=== PATIENT | female | born 1965 | race African-American/Black ===

== ENCOUNTER 2017-01-06 23:50 | Emergency (ER) | payer MEDICAID, SELFPAY ==
[2017-01-07] MEDS ORDERED: Ketorolac Tromethamine 60 MG/2 ML VIAL ONE (00:26)
== END 2017-01-07 00:56 | disposition home or self-care (01) ==
LOC: ERS 23:50
DX: M54.6 Pain in thoracic spine (principal); G89.29 Other chronic pain; E11.9 Type 2 diabetes mellitus without complications; E78.5 Hyperlipidemia, unspecified; I10 Essential (primary) hypertension; I25.10 Atherosclerotic heart disease of native coronary artery without angina pectoris; F32.9 Major depressive disorder, single episode, unspecified; F17.210 Nicotine dependence, cigarettes, uncomplicated; Z79.4 Long term (current) use of insulin; Z79.82 Long term (current) use of aspirin; Z79.899 Other long term (current) drug therapy
CPT/HCPCS: 96372; 99406; J1885

== ENCOUNTER 2017-06-20 02:25 | Emergency (ER) | payer MEDICAID, SELFPAY ==
[2017-06-20 02:56] LABS: #Basophils 0.1 thou/uL (0.0-0.2); #Eosinphils 0.3 thou/uL (0.0-0.7); #Monocytes 0.6 thou/uL (0.11-0.59); #Neutrophils 5.4 thou/uL (1.40-6.50); %Eosinophils 3.2 % (0.0-10.0); %Lymphocytes 24.2 % (21.0-51.0); %Neutrophils 64.6 % (42.0-75.0); Hemoglobin 14.3 g/dL (12.0-16.0); Mean Corpuscular HGB CONC 34.3 g/dL (32.0-36.0); Mean Corpuscular Hemoglobin 30.5 pg (27.0-31.0); Mean Corpuscular Volume 88.9 fl (81.0-99.0); Platelet Count 249 thou/uL (130-400); RBC Distribution Width 12.9 % (11.5-14.5); Red Blood Cell (RBC) Count 4.68 mill/uL (4.20-5.40); White Blood Cell (WBC) Count 8.4 thou/uL (4.8-10.8)
[2017-06-20 03:12] LABS: ALT (SGPT) 23 U/L (8-55); AST (SGOT) 14 U/L (5-34); Albumin 3.9 g/dL (3.5-5.0); Alkaline Phosphatase 154 U/L (40-150); Anion Gap 13 mmol/L (10-20); BUN (Urea Nitrogen) 15 mg/dL (9.8-20.1); Bilirubin, Total 0.2 mg/dL (0.2-1.2); Calc. Creatinine Clearance 0 mL/min (70-130); Calcium 9.8 mg/dL (7.8-10.44); Carbon Dioxide 27 mmol/L (22-29); Chloride 96 mmol/L (98-107); Estimated GFR-MDRD 49; Globulin 4.1 g/dL (2.4-3.5); Glucose 516 mg/dL (70-105); Sodium 132 mmol/L (136-145)
[2017-06-20 03:15] LABS: CKMB 0.9 ng/mL (0-6.6); Troponin I Less than 0.010 ng/mL (< 0.028)
[2017-06-20 05:44] LABS: Troponin I Less than 0.010 ng/mL (< 0.028)
--- NOTE | 2017-06-20 07:31 | RAD ---
SINGLE VIEW OF THE CHEST: COMPARISON: 12/27/15. HISTORY: Anxiety and chest pain. FINDINGS: Single view of the chest shows a normal sized cardiomediastinal silhouette. There is no evidence of c onsolidation, mass, or pleural effusion. The bones are unremarkable. IMPRESSION: No evidence of acute cardiopulmonary disease. POS: [facility]
== END 2017-06-20 05:51 | disposition home or self-care (01) ==
LOC: ERS 02:25
DX: F41.9 Anxiety disorder, unspecified (principal); Z71.6 Tobacco abuse counseling; I25.10 Atherosclerotic heart disease of native coronary artery without angina pectoris; E11.9 Type 2 diabetes mellitus without complications; E78.5 Hyperlipidemia, unspecified; I10 Essential (primary) hypertension; F32.9 Major depressive disorder, single episode, unspecified; F17.210 Nicotine dependence, cigarettes, uncomplicated; Z79.899 Other long term (current) drug therapy; Z79.4 Long term (current) use of insulin
CPT/HCPCS: 36415; 71045; 80053; 82553; 84484; 85025; 93005; 99406

== ENCOUNTER 2017-08-02 20:10 | Emergency (ER) | payer SELFPAY ==
[2017-08-02 21:00] LABS: #Basophils 0.1 thou/uL (0.0-0.2); #Eosinphils 0.1 thou/uL (0.0-0.7); #Lymphocytes 2.4 thou/uL (1.20-3.40); #Monocytes 0.6 thou/uL (0.11-0.59); #Neutrophils 6.1 thou/uL (1.40-6.50); %Basophils 0.7 % (0.0-1.0); %Eosinophils 1.4 % (0.0-10.0); %Lymphocytes 25.4 % (21.0-51.0); %Monocytes 6.6 % (0.0-10.0); Hemoglobin 15.1 g/dL (12.0-16.0); Mean Corpuscular HGB CONC 34.8 g/dL (32.0-36.0); Mean Corpuscular Hemoglobin 30.4 pg (27.0-31.0); Mean Corpuscular Volume 87.2 fL (78.0-98.0); Mean Platelet Volume 8.7 fL (7.4-10.4); Platelet Count 246 thou/uL (130-400); RBC Distribution Width 12.6 % (11.5-14.5); Red Blood Cell (RBC) Count 4.96 mill/uL (4.20-5.40); White Blood Cell (WBC) Count 9.3 thou/uL (4.8-10.8)
[2017-08-02 21:23] LABS: ALT (SGPT) 19 U/L (8-55); AST (SGOT) 13 U/L (5-34); Albumin 4.1 g/dL (3.5-5.0); Alkaline Phosphatase 163 U/L (40-150); Anion Gap 15 mmol/L (10-20); BUN (Urea Nitrogen) 11 mg/dL (9.8-20.1); Bilirubin, Total 0.4 mg/dL (0.2-1.2); Calc. Creatinine Clearance 0 mL/min (70-130); Calcium 9.8 mg/dL (7.8-10.44); Carbon Dioxide 25 mmol/L (22-29); Chloride 96 mmol/L (98-107); Estimated GFR-MDRD 72; Globulin 4.4 g/dL (2.4-3.5); Glucose 283 mg/dL (70-105); Potassium 3.9 mmol/L (3.5-5.1); Protein, Total 8.5 g/dL (6.0-8.3); Sodium 132 mmol/L (136-145)
[2017-08-02 21:27] LABS: Troponin I Less than 0.010 ng/mL (< 0.028)
[2017-08-02 21:32] LABS: Acetaminophen Less than 6.0 mcg/mL (10.0-30.0); Alcohol Less than 10 mg/dL (Less than 10); Salicylate Less than 8.0 mg/dL (15.0-30.0)
[2017-08-02 21:35] LABS: Bilirubin Negative (Negative); Blood, Urine Negative (Negative); Clarity CLEAR (Clear); Glucose, Urine (Dipstick) >=1000 mg/dL (Negative); Leukocyte Negative (Negative); Nitrite Negative (Negative); Protein, Urine (Dipstick) Negative (Neg-Trace); Specific Gravity, Urine 1.029 (1.002-1.036); pH, Urine 6.5 (5.0-9.0)
[2017-08-02 21:38] LABS: Pregnancy Test - Urine (BHCG) Negative (Negative); Pregu Control Background? CLEAR/WHITE (CLR/WHITE); Pregu Control Bar Appear? YES (CONTROL BAR); Specific Gravity 1.029 (1.002-1.036)
[2017-08-02 21:44] LABS: Amphetamine Not Detected (NotDetected); Barbiturates Screen Not Detected (NotDetected); Benzodiazepine Screen Not Detected (NotDetected); Cocaine Metabolite Screen Not Detected (NotDetected); Medtox Control Line Valid? VALID (VALID); Medtox Reader # READER 1; Methadone Not Detected (NotDetected); Methamphetamine Not Detected (NotDetected); Opiate Screen Not Detected (NotDetected); Oxycodone Screen Not Detected (NotDetected); Phencyclidine (PCP) Not Detected (NotDetected); THC/Cannabinoid Screen Not Detected (NotDetected); Tricyclic Screen Detected (NotDetected)
[2017-08-02 22:22] LABS: CK (CPK) 143 U/L (29-168)
[2017-08-02 23:01] LABS: Troponin I Less than 0.010 ng/mL (< 0.028)
== END 2017-08-02 23:25 | disposition home or self-care (01) ==
LOC: ERS 20:10
DX: R07.9 Chest pain, unspecified (principal); F41.9 Anxiety disorder, unspecified; E78.5 Hyperlipidemia, unspecified; E11.9 Type 2 diabetes mellitus without complications; F31.9 Bipolar disorder, unspecified; F17.210 Nicotine dependence, cigarettes, uncomplicated; M16.10 Unilateral primary osteoarthritis, unspecified hip; M47.9 Spondylosis, unspecified; I10 Essential (primary) hypertension; I25.10 Atherosclerotic heart disease of native coronary artery without angina pectoris; Z79.899 Other long term (current) drug therapy; Z79.4 Long term (current) use of insulin; Z71.6 Tobacco abuse counseling
CPT/HCPCS: 36415; 80053; 80306; 80307; 81003; 81025; 82550; 82553; 84443; 84484; 85025; 93005; 99406

== ENCOUNTER 2018-03-23 23:52 | Emergency (ER) | payer MEDICAID, SELFPAY ==
--- NOTE | 2018-03-24 08:08 | RAD ---
THREE VIEWS OF THE RIGHT THUMB: HISTORY: Right thumb pain. FINDINGS: Three views of the right thumb show no evidence of acute fracture or dislocation. No soft tissue swe lling is seen. No degenerative changes are present. IMPRESSION: Unremarkable exam. POS: [facility]
== END 2018-03-24 01:30 | disposition home or self-care (01) ==
LOC: ERS 23:52
DX: L03.011 Cellulitis of right finger (principal); E11.9 Type 2 diabetes mellitus without complications; E78.5 Hyperlipidemia, unspecified; I25.10 Atherosclerotic heart disease of native coronary artery without angina pectoris; I10 Essential (primary) hypertension; F41.9 Anxiety disorder, unspecified; F31.9 Bipolar disorder, unspecified; F17.210 Nicotine dependence, cigarettes, uncomplicated; Z79.899 Other long term (current) drug therapy; Z79.4 Long term (current) use of insulin

== ENCOUNTER 2018-04-17 14:11 | Emergency (ER) | payer SELFPAY ==
--- NOTE | 2018-04-17 15:14 | RAD ---
CHEST TWO VIEWS: History: Cough. Comparison: 03-16-18 FINDINGS: Lungs are clear. No pneumothorax or effusion. Cardiac silhouette and mediastinal contour is within no rmal limits. IMPRESSION: No acute intrathoracic abnormality. POS: [facility]
== END 2018-04-17 16:00 | disposition home or self-care (01) ==
LOC: ERS 14:11
DX: J20.9 Acute bronchitis, unspecified (principal); I25.10 Atherosclerotic heart disease of native coronary artery without angina pectoris; E11.9 Type 2 diabetes mellitus without complications; E78.5 Hyperlipidemia, unspecified; I10 Essential (primary) hypertension; F41.9 Anxiety disorder, unspecified; F31.9 Bipolar disorder, unspecified; F17.210 Nicotine dependence, cigarettes, uncomplicated
CPT/HCPCS: 71046

== ENCOUNTER 2018-05-09 08:53 | Emergency (ER) | payer SELFPAY ==
[2018-05-09 09:33] LABS: #Basophils 0.1 thou/uL (0.0-0.2); #Eosinphils 0.2 thou/uL (0.0-0.7); #Lymphocytes 2.4 thou/uL (1.20-3.40); #Monocytes 0.7 thou/uL (0.11-0.59); #Neutrophils 4.8 thou/uL (1.40-6.50); %Basophils 0.6 % (0.0-1.0); %Eosinophils 2.9 % (0.0-10.0); %Lymphocytes 29.4 % (21.0-51.0); %Monocytes 8.5 % (0.0-10.0); %Neutrophils 58.5 % (42.0-75.0); Hemoglobin 13.8 g/dL (12.0-16.0); Mean Corpuscular HGB CONC 33.8 g/dL (32.0-36.0); Mean Corpuscular Hemoglobin 29.7 pg (27.0-31.0); Mean Platelet Volume 9.4 fL (7.4-10.4); Platelet Count 247 thou/uL (130-400); RBC Distribution Width 12.4 % (11.5-14.5); Red Blood Cell (RBC) Count 4.63 mill/uL (4.20-5.40); White Blood Cell (WBC) Count 8.3 thou/uL (4.8-10.8)
[2018-05-09] MEDS ORDERED: Aspirin Chewable 81 MG TAB ONE (09:41)
[2018-05-09] MEDS ORDERED: Nitroglycerin 2% Ointment 1 INCH/1 GM Packet ONE (09:41)
[2018-05-09 10:00] LABS: ALT (SGPT) 9 U/L (8-55); AST (SGOT) 7 U/L (5-34); Albumin 3.8 g/dL (3.5-5.0); Alkaline Phosphatase 133 U/L (40-150); Anion Gap 11 mmol/L (10-20); BUN (Urea Nitrogen) 9 mg/dL (9.8-20.1); Bilirubin, Total 0.3 mg/dL (0.2-1.2); Calc. Creatinine Clearance 0 mL/min (70-130); Calcium 9.5 mg/dL (7.8-10.44); Carbon Dioxide 27 mmol/L (22-29); Chloride 101 mmol/L (98-107); Estimated GFR-MDRD Greater than 90; Globulin 3.6 g/dL (2.4-3.5); Glucose 184 mg/dL (70-105); Potassium 3.4 mmol/L (3.5-5.1); Protein, Total 7.4 g/dL (6.0-8.3); Sodium 136 mmol/L (136-145)
--- NOTE | 2018-05-09 10:16 | RAD ---
PORTABLE CHEST: HISTORY: Chest pain. COMPARISON: Two view chest from 04/17/2018. FINDINGS: The lung rivers appear clear and well aerated. No focal infiltrate identified. Vascular markings ar e normal. The heart and mediastinum are unremarkable. IMPRESSION: No acute process identified. POS: [facility]
== END 2018-05-09 10:23 | disposition home or self-care (01) ==
LOC: ERS 08:53
DX: R07.89 Other chest pain (principal); E11.9 Type 2 diabetes mellitus without complications; I10 Essential (primary) hypertension; E78.5 Hyperlipidemia, unspecified; F17.210 Nicotine dependence, cigarettes, uncomplicated; Z79.4 Long term (current) use of insulin; Z79.899 Other long term (current) drug therapy
CPT/HCPCS: 36415; 71045; 80053; 84484; 85025; 93005

== ENCOUNTER 2018-10-29 08:36 | Outpatient (CLI) | payer MEDICARE ==
[~2018-10-29 08:36] MED LIST: EPINEPHrine 1 MG/ML AMP ONE; Gadobenate Dimeglumine 529 MG/1 ML (20ML VIAL) ONE; Iopamidol 300 61% 100 ML VIAL FS ONE; Lidocaine 1% PF 10 ML AMP ONE
--- NOTE | 2018-10-29 11:28 | RAD ---
RIGHT HIP ARTHROGRAM: HISTORY: Right hip pain. PROCEDURE IN DETAIL: After informed consent was obtained the patient was prepped and draped in the normal sterile fashion. Local anesthesia was obtained with 1% Xylocaine. A 22 gauge spinal needle was inserted into the la teral third of the joint space without difficulty and a total of approximately 8 to 9 mL of a mixture of dilute MultiHance and Isovue was injected with good opacification of the joint space. The patien t tolerated the procedure well. There were no immediate complications. IMPRESSION: Successful right hip arthrogram. Please see MRI report concerning findings. POS: [facility]
--- NOTE | 2018-10-29 14:05 | MRI ---
POST ARTHROGRAM MRI OF RIGHT HIP PERFORMED WITH CONTRAST ENHANCEMENT: Date: 10/29/18 HISTORY: Right hip pain. FINDINGS: A total of approximately 8 mL of a mixture of dilute MultiHance and nonionic contrast (Isovue) were u sed for this examination. The SI joints are symmetric in appearance. There are no signs of any stress fractures of the pelvic r ing noted. The visualized intrapelvic contents appear unremarkable. There is some mild tendinosis of the hamstring tendon origins. Small field of view images of the left hip were not performed. These appears to be some subchondral c ystic change of the acetabulum. There is good contrast opacification of the right hip joint. There is an irregular appearance and tea r of the anterior labrum, a fairly extensive tear. It extends into the anterior superior labrum. No l abral cyst formation is seen. No signs of muscle strain. IMPRESSION: Anterior right hip labral tear. POS: [facility]
== END 2018-10-29 08:37 | disposition home or self-care (01) ==
LOC: RAD 08:36
PROVIDERS: ATTEND Orthopaedic Surgery
DX: S73.101A Unspecified sprain of right hip, initial encounter (principal); M25.551 Pain in right hip
CPT/HCPCS: 27093; A9577; J0171; J2001; Q9967

== ENCOUNTER 2018-12-28 09:47 | Outpatient (CLI) | payer MEDICARE ==
--- NOTE | 2018-12-28 11:18 | MRI ---
MRI LUMBAR SPINE NONCONTRAST: HISTORY: Lumbar pain. Radiculopathy down the right leg. COMPARISON: 01/04/2016. FINDINGS: Appropriate T1 marrow signal intensity of the lumbar vertebrae. Lumbar spine vertebral body height is maintained. No fracture. No significant STIR hyperintensity to suggest vertebral body edema or ligamentous injury. Stable straightening of lumbar lordosis. Appropriate signal intensity of the paraspinal muscles. Appropriate signal intensity of the visualize d solid organs. Conus medullaris terminates at the inferior endplate of L1. T12-L1:Adequate disc hydration. No significant central canal stenosis. Neural foramina are patent garrick aterally. L1-L2:Adequate disc hydration. No posterior disc abnormality. No significant central canal stenosis o r significant neural foraminal narrowing. L2-L3:Adequate disc hydration. No significant posterior disc abnormality. No significant central maico l stenosis or significant neural foraminal narrowing. L3-L4:Adequate disc hydration. No significant posterior disc abnormality. Mild ligament flavum thicke nimisha and right greater than left facet hypertrophy. No significant central canal stenosis. Mild bilateral neural foraminal narrowing. L4-L5:Adequate disc hydration. No significant posterior disc abnormality. No significant central maico l stenosis. Mild bilateral neural foraminal narrowing. L5-S1:Mild loss of disc space height. Central/left subarticular disc protrusion. No significant centr al canal stenosis. Mild to moderate bilateral neural foraminal narrowing. IMPRESSION: Degenerative changes of the lumbar spine as above. Transcribed Date/Time: 12/28/2018 11:25 AM
--- NOTE | 2018-12-28 11:21 | MRI ---
MRI CERVICAL SPINE WITHOUT CONTRAST: HISTORY: Neck pain. Symptoms radiate down the right arm.. COMPARISON: None. FINDINGS: Straightening of normal cervical lordosis. Appropriate T1 marrow signal intensity. Vertebral body hei ght is maintained. No fracture. No significant STIR hyperintensity to suggest vertebral body edema or ligamentous injury. Visualized brain parenchyma, cervicomedullary junction, cervical cord and the upper thoracic cord hav e a normal size and signal intensity. C2-C3: No significant central canal stenosis. Neural foramina are patent. C3-C4: No significant posterior disc abnormality. No significant central canal stenosis or significan t neural foraminal narrowing. C4-C5: Broad-based disc-osteophyte complex abuts the thecal sac. Mild central canal stenosis. Mild to moderate bilateral foraminal narrowing due to uncovertebral hypertrophy. C5-C6: Broad-based disc-osteophyte complex with a right paracentral component. Mild to moderate centr al canal stenosis. No cord signal abnormality. Moderate to severe right foraminal narrowing due to uncovertebral hypertrophy. C6-C7: Broad-based disc-osteophyte complex. Minimal central canal stenosis. Mild bilateral foraminal narrowing due to uncovertebral hypertrophy. C7-T1: No significant central canal stenosis. Right neural foramen is patent. Mild left foraminal get rowing due to uncovertebral hypertrophy. IMPRESSION: No significant central canal stenosis or significant neural foraminal narrowing. Transcribed Date/Time: 12/28/2018 11:29 AM
== END 2018-12-28 09:48 | disposition home or self-care (01) ==
LOC: TBSIIMAG 09:47
PROVIDERS: ATTEND Neurological Surgery
DX: M47.26 Other spondylosis with radiculopathy, lumbar region (principal); M54.2 Cervicalgia
CPT/HCPCS: 72141; 72148

== ENCOUNTER 2019-02-11 06:02 | Outpatient (CLI) | payer MEDICARE ==
[2019-02-11 17:03] LABS: Hemoglobin 13.4 g/dL (12.0-16.0); Mean Corpuscular HGB CONC 32.8 g/dL (32.0-36.0); Mean Corpuscular Hemoglobin 30.4 pg (27.0-31.0); Mean Corpuscular Volume 92.8 fL (78.0-98.0); Platelet Count 297 thou/uL (130-400); RBC Distribution Width 13.1 % (11.5-14.5); White Blood Cell (WBC) Count 13.7 thou/uL (4.8-10.8)
[2019-02-11 17:35] LABS: Anion Gap 16 mmol/L (10-20); BUN (Urea Nitrogen) 21 mg/dL (9.8-20.1); Calc. Creatinine Clearance 0 mL/min (70-130); Calcium 9.6 mg/dL (7.8-10.44); Carbon Dioxide 27 mmol/L (22-29); Chloride 100 mmol/L (98-107); Estimated GFR-MDRD 53; Glucose 100 mg/dL (70-105); Sodium 139 mmol/L (136-145)
== END 2019-02-11 06:03 | disposition home or self-care (01) ==
LOC: LABBT 06:02
PROVIDERS: ATTEND Neurological Surgery
DX: Z01.818 Encounter for other preprocedural examination (principal); M54.12 Radiculopathy, cervical region
CPT/HCPCS: 80048; 85027; 93005; 93010

== ENCOUNTER 2019-02-14 23:49 | Emergency (ER) | payer MEDICARE ==
[2019-02-15 00:12] LABS: #Basophils 0.1 thou/uL (0.0-0.2); #Eosinphils 0.2 thou/uL (0.0-0.7); #Lymphocytes 2.8 thou/uL (1.20-3.40); #Monocytes 0.8 thou/uL (0.11-0.59); #Neutrophils 4.7 thou/uL (1.40-6.50); %Basophils 0.6 % (0.0-1.0); %Eosinophils 2.2 % (0.0-10.0); %Lymphocytes 32.7 % (21.0-51.0); %Monocytes 8.9 % (0.0-10.0); %Neutrophils 55.5 % (42.0-75.0); Hemoglobin 14.4 g/dL (12.0-16.0); Mean Corpuscular Volume 87.8 fL (78.0-98.0); Mean Platelet Volume 10.5 fL (7.4-10.4); Platelet Count 214 thou/uL (130-400); RBC Distribution Width 11.9 % (11.5-14.5); Red Blood Cell (RBC) Count 4.98 mill/uL (4.20-5.40); White Blood Cell (WBC) Count 8.5 thou/uL (4.8-10.8)
[2019-02-15 00:34] LABS: ALT (SGPT) 16 U/L (8-55); AST (SGOT) 11 U/L (5-34); Albumin 3.8 g/dL (3.5-5.0); Alkaline Phosphatase 149 U/L (40-110); Anion Gap 14 mmol/L (10-20); BUN (Urea Nitrogen) 11 mg/dL (9.8-20.1); Bilirubin, Total 0.2 mg/dL (0.2-1.2); Calc. Creatinine Clearance 0 mL/min (70-130); Calcium 9.1 mg/dL (7.8-10.44); Carbon Dioxide 26 mmol/L (22-29); Chloride 96 mmol/L (98-107); Estimated GFR-MDRD 72; Globulin 3.7 g/dL (2.4-3.5); Glucose 420 mg/dL (70-105); Potassium 3.7 mmol/L (3.5-5.1); Protein, Total 7.5 g/dL (6.0-8.3); Sodium 132 mmol/L (136-145)
[2019-02-15 01:36] LABS: Bacteria/HPF None Seen HPF (None Seen); Bilirubin Negative (Negative); Blood, Urine 3+ (Negative); Clarity Turbid (Clear); Glucose, Urine (Dipstick) Greater than 1000 mg/dL (Negative); Leukocyte 250 Leu/uL (Negative); Nitrite Negative (Negative); Protein, Urine (Dipstick) 50 mg/dL (Neg-Trace); RBC/HPF Greater than 50 HPF (0-3); Squamous Epithelial 0-3 HPF (0-3); Urobilinogen Normal mg/dL (Less than 2); WBC/HPF Greater than 50 HPF (0-3)
--- NOTE | 2019-02-15 08:27 | CT ---
PRELIMINARY REPORT/[facility]/EMERGENCY AFTER HOURS PROCEDURE EXAM:CT Abdomen and Pelvis Without Intravenous Contrast CLINICAL HISTORY: BLOOD IN URINE FOR 1 HR, "PRESSURE WHEN SHE URINATES" C/O BURNING WITH URINATION. TECHNIQUE: Axial computed tomography images of the abdomen and pelvis without intravenous contrast. CONTRAST: None. COMPARISON: None provided. FINDINGS: LUNG BASES: No basilar airspace consolidation or pleural effusion. LIVER: The liver is enlarged measuring 18.3 cm in length and is hypodense. GALLBLADDER AND BILE DUCTS : Unremarkable. No calcified stone. No ductal dilation. PANCREAS: Unremarkable. SPLEEN: Unremarkable. ADRENAL GLANDS: Unremarkable. KIDNEYS, URETERS, AND BLADDER: Unremarkable. No hydronephrosis or nephrolithiasis. No ureteral or alba dder calculi. Diffuse bladder wall thickening. STOMACH AND BOWEL: No obstruction. No wall thickening. No CT evidence of colitis or acute diverticuli tis. APPENDIX: No CT evidence for appendicitis. PERITONEUM: No free fluid. No free air. LYMPH NODES: No lymphadenopathy. REPRODUCTIVE: Lobular uterus with several fibroids measuring up to 4 cm. VASCULATURE: No aortic aneurysm. ABDOMINAL WALL AND SOFT TISSUES: Unremarkable. BONES: No fracture or suspicious osseous abnormality. IMPRESSION: Diffuse bladder wall thickening which may be secondary to under distention or cystitis. Correlation with urinalysis is recommended. No identified urinary tract calculus. No hydronephrosis. Several ut erine fibroids. Hepatomegaly with fatty infiltration. ELECTRONICALLY SIGNED BY: Waylon Montes MD Feb 15, 2019 1:50:21 AM [facility] FINAL REPORT EMERGENT AFTER HOURS CT OF THE ABDOMEN AND PELVIS WITHOUT CONTRAST: FINDINGS/IMPRESSION: I agree with the findings and impression given in the preliminary report per [facility] physici an. 1. There is slight wall thickening of the urinary bladder. This may be secondary to its partially d ecompressed state. 2. Uterine fibroids. 3. Fatty liver.
== END 2019-02-15 02:14 | disposition home or self-care (01) ==
LOC: ERS 23:49
DX: K81.9 Cholecystitis, unspecified (principal); R31.9 Hematuria, unspecified; I25.10 Atherosclerotic heart disease of native coronary artery without angina pectoris; E78.5 Hyperlipidemia, unspecified; E78.00 Pure hypercholesterolemia, unspecified; I10 Essential (primary) hypertension; F41.9 Anxiety disorder, unspecified; F31.9 Bipolar disorder, unspecified; F17.210 Nicotine dependence, cigarettes, uncomplicated; Z79.4 Long term (current) use of insulin; Z79.899 Other long term (current) drug therapy
CPT/HCPCS: 36415; 74176; 80053; 81015; 85025

== ENCOUNTER 2019-02-18 07:20 | Day surgery (SDC) | payer MEDICARE ==
[2019-02-11 16:12] VITALS: BMI 33.5
[2019-02-18] MEDS ORDERED: Sodium Chloride 0.9% 0 ML ONE (09:06)
[2019-02-18] MEDS ORDERED: Lidocaine 2% Jelly 5 ML TUBE ONE (09:58)
[2019-02-18] MEDS ORDERED: Fentanyl 100 MCG/2 ML VIAL ONE ×2 (09:58→14:10)
[2019-02-18] MEDS ORDERED: Insulin Regular 300 UNITS/3 ML VIAL ONE (10:16)
[2019-02-18] MEDS ORDERED: ePHEDrine/0.9% NaCl/PF SYRINGE 50 mg/10 ml ONE (10:24)
[2019-02-18] MEDS ORDERED: Ketorolac Tromethamine 30 MG/ML VIAL ONE (10:24)
[2019-02-18] MEDS ORDERED: Rocuronium Bromide 10 MG/ML (10ML VIAL) ONE (10:24)
[2019-02-18] MEDS ORDERED: PROPOFOL 200 MG/20 ML VIAL ONE (10:24)
[2019-02-18] MEDS ORDERED: PHENYLEPHRINE-NS 100 MCG/ML 10 ML SYRINGE ONE (10:24)
[2019-02-18] MEDS ORDERED: Ondansetron PF 4 MG/2 ML Vial ONE (10:24)
[2019-02-18] MEDS ORDERED: Lidocaine 1% PF 5 ML VIAL ONE (10:24)
[2019-02-18] MEDS ORDERED: Glycopyrrolate 0.2 MG/ML 5 ML SYRINGE ONE (10:24)
[2019-02-18] MEDS ORDERED: Sodium Chloride 0.9% 10 ML ONE (11:53)
--- NOTE | 2019-02-18 13:37 | OP ---
DATE OF PROCEDURE: 02/18/2019 DOUGH SCALER AND MIXER: Meredith Marie PA-C PROCEDURES PERFORMED: Anterior cervical diskectomy C4-C5 and C5-C6, interbody arthrodesis, intervertebral biomechanical device, local morselized autograft, demineralized bone matrix, anterior titanium instrumentation C4 through C6. DESCRIPTION OF PROCEDURE: The patient was brought to the operating room and intubated. She was positioned supine with the head in modest extension on gel-filled donut. An incision was made in the right precervical area and dissected medial to the sternocleidomastoid muscle. We identified the anterior cervical spinal, and the level was confirmed by x-ray. We debrided the anterior osteophytes, placed distraction across the disk spaces, and completely decompressed the intervertebral disks. The bony endplates were decorticated for purpose of arthrodesis and appropriate-sized intervertebral biomechanical PEEK device was brought in the field. It was filled with demineralized bone matrix, local morselized autograft, and tapped in place securely at C4-C5 and C5-C6. Next, an anterior plate was brought into the field and secured to C4, C5, and C6 using two 14-mm screws at each level. The wound was then extensively irrigated and MAC hemostasis was secured and the wound was closed in anatomic layers. Job ID: [id number]
[2019-02-18] MEDS ORDERED: HYDROcodone/Acetaminophen 5/325 mg Tablet ONE (14:04)
[2019-02-18] MEDS ORDERED: Promethazine HCl 25 MG/ML VIAL ONE (14:16)
[2019-02-18] MEDS ORDERED: Morphine 4 MG/ML VIAL ONE (14:18)
== END 2019-02-18 17:05 | disposition home or self-care (01) ==
LOC: SDC 07:20
PROVIDERS: ATTEND Neurological Surgery
PROC: 0RG20A0 Fusion of 2 or more Cervical Vertebral Joints with Interbody Fusion Device, Anterior Approach, Anterior Column, Open Approach (ICD-10-PCS; principal; 2019-02-18)
PROC: 0RT30ZZ Resection of Cervical Vertebral Disc, Open Approach (ICD-10-PCS; 2019-02-18)
DX: M47.22 Other spondylosis with radiculopathy, cervical region (principal); E11.9 Type 2 diabetes mellitus without complications; I10 Essential (primary) hypertension; E78.5 Hyperlipidemia, unspecified; Z79.4 Long term (current) use of insulin; Z79.899 Other long term (current) drug therapy
CPT/HCPCS: 36416; 76000; C1713; C1776; J0690; J1815; J1885; J2001; J2270; J2405; J2550; J2704; J3010; J3490

== ENCOUNTER 2019-02-20 12:29 | Inpatient (IN) | payer MEDICARE ==
[2019-02-20] MEDS ORDERED: Ketorolac Tromethamine 30 MG/ML VIAL ONE (14:41)
[2019-02-20] MEDS ORDERED: Dexamethasone 10 MG/ML VIAL ONE (14:41)
[2019-02-20] MEDS ORDERED: Benzocaine 20% Spray 60 ML CAN ONE (14:41)
[2019-02-20 14:46] LABS: #Eosinphils 0.2 thou/uL (0.0-0.7); #Lymphocytes 1.5 thou/uL (1.20-3.40); #Neutrophils 7.3 thou/uL (1.40-6.50); %Basophils 0.3 % (0.0-1.0); %Eosinophils 2.2 % (0.0-10.0); %Lymphocytes 14.8 % (21.0-51.0); %Monocytes 9.6 % (0.0-10.0); %Neutrophils 73.1 % (42.0-75.0); Hemoglobin 14.3 g/dL (12.0-16.0); Mean Corpuscular HGB CONC 32.6 g/dL (32.0-36.0); Mean Corpuscular Hemoglobin 29.1 pg (27.0-31.0); Mean Corpuscular Volume 89.5 fL (78.0-98.0); Mean Platelet Volume 10.1 fL (7.4-10.4); Platelet Count 215 thou/uL (130-400); White Blood Cell (WBC) Count 9.9 thou/uL (4.8-10.8)
[2019-02-20] MEDS ORDERED: Aluminum & Magnesium Hydroxide 60 ML, diphenhydrAMINE 150 MG, Lidocaine 2% Viscous Solu... SSW PRN (15:01)
[2019-02-20 15:07] LABS: Anion Gap 12 mmol/L (10-20); BUN (Urea Nitrogen) 6 mg/dL (9.8-20.1); Calc. Creatinine Clearance 0 mL/min (70-130); Calcium 9.9 mg/dL (7.8-10.44); Carbon Dioxide 32 mmol/L (22-29); Chloride 96 mmol/L (98-107); Estimated GFR-MDRD Greater than 90; Glucose 203 mg/dL (70-105); Sodium 136 mmol/L (136-145)
--- NOTE | 2019-02-20 15:19 | RAD ---
Neck soft tissue tissues 2 views HISTORY: Neck pain. Difficulty swallowing. Recent surgery. FINDINGS: Anterior operative fixation hardware at the C4-5-6 levels. No perihardware lucency. Metalli c markers associated with interbody fusion material within the confines of the disc spaces at the postoperative levels. No other unexpected metallic foreign bodies. Prevertebral soft tissue and gas density at the C2-6 levels up to 2.1 cm. Small pockets of internal g as. IMPRESSION: Significant residual soft tissue and gas density within the postoperative bed anterior to the C4-5-6 anterior fixation hardware.
[2019-02-20] MEDS ORDERED: HumaLOG 300 UNITS/3 ML VIAL SC PRN (16:30)
[2019-02-20] MEDS ORDERED: Dextrose 5% in Water 1,000 ML IV PRN (16:30)
[2019-02-20] MEDS ORDERED: Dextrose 50% Abboject 50 ML SYRINGE SLOW IVP PRN (16:30)
[2019-02-20] MEDS ORDERED: Promethazine HCl 12.5 MG SUPP PR PRN (16:32)
[2019-02-20] MEDS ORDERED: Morphine 2 MG/ML SYRINGE SLOW IVP PRN (16:32)
[2019-02-20] MEDS ORDERED: HYDROcodone/Acetaminophen 7.5/325 mg Tablet PO PRN ×2 (16:32)
[2019-02-20] MEDS ORDERED: Ondansetron PF 4 MG/2 ML Vial IVP PRN (16:32)
[2019-02-20] MEDS ORDERED: tiZANidine HCl 4 MG TAB PO PRN (16:32)
[2019-02-20 16:56] VITALS: BMI 33.5
[2019-02-20] MEDS: Dexamethasone 4 mg/ml Vial SLOW IVP SCH (17:55)
[2019-02-20] MEDS: Sodium Chloride 0.9% 1,000 ML IV SCH (17:56)
[2019-02-20] MEDS: HumaLOG 300 UNITS/3 ML VIAL SC PRN (18:03)
[2019-02-20] MEDS ORDERED: Fluconazole In NaCl,Iso-Osm 200 MG in Premix Bag 1 BAG IVPB SCH (18:15)
--- NOTE | 2019-02-20 20:31 | HP ---
HISTORY OF PRESENT ILLNESS: The patient is a 53-year-old female, known to us for C4 through C6 ACDF, postop day #2, who presents to the ER for complaints of dysphagia. She reports since the surgery, she has had difficulty tolerating any p.o. Per the ER, she was unable to tolerate even her oral secretions. She also was complaining of some pain across the posterior neck and shoulders. Denies any difficulty breathing, radicular pain, weakness, numbness, or tingling. A soft tissue C-spine x-ray was notable for postsurgical changes at C4 through C6, but no worrisome findings. She has normal white blood cell count and her labs are only remarkable for an elevated glucose 203. She is afebrile. PAST MEDICAL HISTORY: Coronary artery disease, type 2 diabetes, hypertension, hyperlipidemia, chronic neck and back pain. PAST SURGICAL HISTORY: C4 through C6 ACDF on 02/18/2019, history of angioplasty, carpal tunnel surgery on the left. SOCIAL HISTORY: The patient does not drink alcohol or use any drugs. She does smoke approximately one pack of cigarettes per day. REVIEW OF SYSTEMS: Per HPI. PHYSICAL EXAMINATION: VITAL SIGNS: Stable. Her temperature is 98.0, pulse is 79, respiratory rate 20, the patient is 100% on room air, blood pressure is 118/77. HEENT: Head, normocephalic and atraumatic. Eyes, PERRLA. Extraocular movements intact. ENT, oral mucosa are slightly dry. There is a white phlegm noted on the tongue. NECK: She has an incision along the anterior aspect of the right-sided neck that is clean, dry, and intact. Steri-Strips are placed. CARDIAC: Regular rate and rhythm. PULMONARY: Symmetric chest expansion. No evidence of dyspnea. MUSCULOSKELETAL: Free active range of motion of all extremities. No focal motor weakness. No reflex asymmetry. NEUROLOGIC: No focal neurologic deficits are appreciated. ASSESSMENT AND PLAN: This is a 53-year-old female, who is postoperative day #2, status post C4 through C6 anterior cervical discectomy and fusion, who has developed postoperative dysphagia. She has improved since the treatment began with Decadron in the emergency department. She is now tolerating her oral secretions and small sips of water or clear fluids. We will continue her steroids and monitor her progress. I will advance her diet as tolerated. The hospitalist has also started the patient on Diflucan for possible oral thrush. They will assist with medical management of her chronic medical problems. I have discussed this plan with Dr. Lopez who is in agreement. Job ID: [id number]
[2019-02-20] MEDS: Nystatin 500,000 UNITS/5 ML UDCUP SSW SCH (20:45)
[2019-02-20] MEDS: Insulin Glargine 60 UNITS in Pre-Filled Syringe 1 EACH SC SCH (20:45)
[2019-02-20] MEDS: Gabapentin 300 MG CAP PO SCH (20:45)
[2019-02-20] MEDS ORDERED: Non-Formulary Item 1 EACH (Insulin Detemir [Levemir Flextouch] 60 UNIT) SQ SCH (21:00)
[2019-02-20] MEDS ORDERED: Atorvastatin Calcium 40 MG TAB PO SCH (21:00)
[2019-02-21] MEDS: Dexamethasone 4 mg/ml Vial SLOW IVP SCH ×2 (00:12→05:28)
[2019-02-21] MEDS: Sodium Chloride 0.9% 1,000 ML IV SCH (03:11)
[2019-02-21] MEDS: HumaLOG 300 UNITS/3 ML VIAL SC PRN (05:28)
[2019-02-21 05:39] LABS: Hemoglobin A1c Greater than 14.0 % (4.0-6.0)
[2019-02-21 07:54] VITALS: BP 114/75; TEMP 98.1
[2019-02-21] MEDS ORDERED: metFORMIN 500 MG TAB PO SCH (08:00)
--- NOTE | 2019-02-21 08:47 | PDOC.HOSPP ---
- Subjective Encounter Date: 02/20/19 Encounter Time: 16:00 Subjective: pt up in bed complains of not being able to eat for the past few days. she denies any nausea but has been having pain on swallowing. No fever or chills no diarrhea or abdomen pain. - Objective Vital Signs & Weight: Vital Signs (12 hours) Temp Pulse Resp BP Pulse Ox 02/21/19 07:50 98.1 F 69 18 114/75 100 02/21/19 03:33 97.8 F 77 16 118/72 100 02/20/19 23:31 98.2 F 88 16 125/79 96 Weight Weight 195 lb I&O: 02/20/19 02/21/19 02/22/19 06:59 06:59 06:59 Intake Total 925 Output Total 0 Balance 925 Result Diagrams: 02/20/19 14:37 02/20/19 14:37 Additional Labs: Accuchecks 02/21/19 02/20/19 02/20/19 05:29 20:21 17:08 POC Glucose 447 H 283 H 212 H Hospitalist ROS - Review of Systems Respiratory: denies: cough, dry, shortness of breath, hemoptysis, SOB with excertion, pleuritic pain, sputum, wheezing, other Cardiovascular: denies: chest pain, palpitations, orthopnea, paroxysmal noc. dyspnea, edema, light headedness, other Gastrointestinal: reports: other Genitourinary: denies: dysuria, frequency, incontinence, hematuria, retention, other - Medication Medications: Active Medications Generic Name Dose Route Start Last Admin Trade Name Freq PRN Reason Stop Dose Admin Hydrocodone Bitart/Acetaminophen 1 tab 02/20/19 16:32 02/21/19 00:19 Funk 7.5/325 PO 1 tab Q4H PRN Administration Mild Pain (1-3) Atorvastatin Calcium 40 mg 02/20/19 21:00 02/20/19 20:45 Lipitor PO 40 mg HS ELMO Administration Dexamethasone 4 mg 02/20/19 18:00 02/21/19 05:28 Decadron SLOW IVP 4 mg Q6HR ELMO Administration Gabapentin 600 mg 02/20/19 21:00 02/20/19 20:45 Neurontin PO 600 mg QID ELMO Administration Sodium Chloride 1,000 mls @ 75 mls/hr 02/20/19 16:32 02/21/19 03:11 Normal Saline 0.9% IV Not Given .[id number] ELMO Insulin Glargine 60 units/ 0.6 mls @ 0 mls/hr 02/20/19 21:00 02/20/19 20:45 Miscellaneous Medication SC 0.6 mls BID ELMO Administration Insulin Human Lispro 0 units 02/20/19 16:30 02/21/19 05:28 Humalog SC 6 unit .MILD SLIDING SCALE PRN Administration Mild Correctional Scale Nystatin 500,000 units 02/20/19 21:00 02/20/19 20:45 Mycostatin SSW 500,000 units QID ELMO Administration - Exam ENT - other findings: oral thrush noted on tongue Neck: negative: supple, symmetric, no JVD, no thyromegaly, no lymphadenopathy, no carotid bruit, JVD Heart: negative: RRR, no murmur, no gallops, no rubs, normal peripheral pulses, irregular, diminshed peripheral pulses, murmur present, II/IV, III/IV Hosp A/P (1) Dysphagia Code(s): R13.10 - DYSPHAGIA, UNSPECIFIED Status: Acute (2) Depression Code(s): F32.9 - MAJOR DEPRESSIVE DISORDER, SINGLE EPISODE, UNSPECIFIED Status : Chronic (3) Diabetes mellitus type 2 with complications Code(s): E11.8 - TYPE 2 DIABETES MELLITUS WITH UNSPECIFIED COMPLICATIONS Status: Chronic (4) Hyperlipidemia Code(s): E78.5 - HYPERLIPIDEMIA, UNSPECIFIED Status: Chronic Qualifiers: (5) Hypertension Code(s): I10 - ESSENTIAL (PRIMARY) HYPERTENSION Status: Chronic Qualifiers: - Plan pt is having pain on swallowing, she has oral thrush. will get hbg alc and will start pt on nystatin and iv diflucan. pt also had recent surgery.
[2019-02-21] MEDS: Nystatin 500,000 UNITS/5 ML UDCUP SSW SCH (09:36)
[2019-02-21] MEDS: Gabapentin 300 MG CAP PO SCH (09:36)
[2019-02-21] MEDS: Insulin Glargine 60 UNITS in Pre-Filled Syringe 1 EACH SC SCH (10:34)
--- NOTE | 2019-02-21 10:49 | PRG ---
DATE OF SERVICE: 02/21/2019 The patient is seen and examined. I agree with Meredith Marie's evaluation on 02/20/2019. The patient was readmitted last night for dysphagia. She did have some element of oral thrush, for which she has been started on Diflucan. We had tried to avoid steroids in the perioperative period given her diabetes, but given this dysphagia, we did initiate steroids last night and her dysphagia is now much better. She is tolerating oral intake fairly well. We will discharge her today on a Medrol Dosepak. Job ID: [id number]
--- NOTE | 2019-02-22 09:18 | DIS ---
DATE OF ADMISSION: 02/20/2019 DATE OF DISCHARGE: 02/21/2019 The patient is a 53-year-old female, who is known to us for C4 -C6 ACDF on 02/18/2018. Following the surgery, she was discharged to home that afternoon, but returned on 02/20/2019 to the emergency department for increased dysphagia. She was admitted for further management of her dysphagia and treated with IV Decadron. She has had significant improvement and is now tolerating a p.o. diet. There was also questionable underlying thrush, which was treated with Diflucan. Following up on exam, the patient is now tolerating regular diet. Her pain is well-controlled with p.o. medications. We will dismiss the patient to home and I will follow up with her in 2-week postoperative visit as planned. I have called in a script for Medrol Dosepak to the [facility] pharmacy. We discussed precautions and reasons to return. Job ID: [id number] MTDD
== END 2019-02-21 11:00 | disposition home or self-care (01) | DRG 159 ==
LOC: ERS 12:29 → SJJU 16:39 → ERHOLD 16:45 → SJJU 17:35
PROVIDERS: ADMIT Emergency Medicine; ATTEND Emergency Medicine
DX: B37.0 Candidal stomatitis (principal); I25.10 Atherosclerotic heart disease of native coronary artery without angina pectoris; E11.9 Type 2 diabetes mellitus without complications; I10 Essential (primary) hypertension; E78.5 Hyperlipidemia, unspecified; F32.9 Major depressive disorder, single episode, unspecified; Z98.1 Arthrodesis status; Z79.899 Other long term (current) drug therapy; Z79.84 Long term (current) use of oral hypoglycemic drugs
CPT/HCPCS: 36415; 36416; 70360; 76000; 80048; 83036; 85025; C1713; C1776; J0690; J1100; J1450; J1815; J1885; J2001; J2270; J2405; J2550; J2704; J3010; J3490; Q0163

== ENCOUNTER 2019-03-05 14:52 | Outpatient (CLI) | payer MEDICARE ==
--- NOTE | 2019-03-05 15:16 | RAD ---
3 views of the cervical spine: 03/05/2019 COMPARISON: 08/27/2004 HISTORY: Cervical radiculopathy, prior cervical spine surgery, cervical radiculopathy FINDINGS: There is atherosclerotic calcification of the aortic arch. Open-mouth odontoid view demonst rates a normal-appearing dens and C1-2 articulation. Anterior discectomy and fusion hardware present at the C4-5/C5-6 levels. No evidence for hardware failure. Mild vertebral soft tissue promine nce at the postsurgical site. IMPRESSION: Interval anterior discectomy and fusion at C4-5/C5-6.
== END 2019-03-05 14:53 | disposition home or self-care (01) ==
LOC: TBSIIMAG 14:52
PROVIDERS: ATTEND Neurological Surgery
DX: M54.12 Radiculopathy, cervical region (principal); Z98.1 Arthrodesis status
CPT/HCPCS: 72040

== ENCOUNTER 2019-03-19 01:19 | Emergency (ER) | payer MEDICARE | END 2019-03-19 02:14 | disposition home or self-care (01) | LOC: ERS 01:19 | DX: R13.10 Dysphagia, unspecified (principal); E11.9 Type 2 diabetes mellitus without complications; E78.5 Hyperlipidemia, unspecified; I10 Essential (primary) hypertension; F32.9 Major depressive disorder, single episode, unspecified; F41.9 Anxiety disorder, unspecified; F17.210 Nicotine dependence, cigarettes, uncomplicated; Z79.899 Other long term (current) drug therapy; Z79.4 Long term (current) use of insulin | CPT/HCPCS: 99283 ==

== ENCOUNTER 2019-05-01 14:30 | Outpatient (CLI) | payer MEDICARE ==
--- NOTE | 2019-05-01 15:03 | RAD ---
EXAM: 3 views of the cervical spine HISTORY: Cervical degenerative disc disorder COMPARISON: 03/05/2019 FINDINGS: AP, lateral, and open mouth odontoid views of the cervical spine shows normal height and al ignment of the vertebral bodies and intervertebral discs without fracture or subluxation. The patient is status post anterior fusion of C4-C6 with a plate and screws. Disc spacers are seen in goo d position within the disc spaces. No degenerative changes are seen. No prevertebral soft tissue swelling is seen. IMPRESSION: Postsurgical changes of cervical spine without evidence of complication.
== END 2019-05-01 14:31 | disposition home or self-care (01) ==
LOC: TBSIIMAG 14:30
PROVIDERS: ATTEND Neurological Surgery
DX: M50.30 Other cervical disc degeneration, unspecified cervical region (principal); Z98.890 Other specified postprocedural states
CPT/HCPCS: 72040

== ENCOUNTER 2019-06-07 13:53 | Outpatient (CLI) | payer MEDICARE ==
--- NOTE | 2019-06-07 15:19 | RAD ---
EXAM: XR Barium Swallow Esophagus PROVIDED CLINICAL HISTORY: Difficulty swallowing after cervical spine surgery. 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 Lungs are rogelio r. Evidence of anterior cervical fusion involves the lower cervical spine. Vascular calcifications are seen in the thoracic aorta. Double contrast esophagram was performed in usual fashion. Normal esophageal motility was demonstrate d during the exam. Esophagus is normal in caliber at level of postsurgical changes in the lower cervical spine. No focal narrowing or mucosal irregularity is seen throughout the esophagus. A 12.5 m m barium tablet was administered during the exam with transient holdup at the level of the aortic arch and GE junction. No hiatal hernia is demonstrated during the exam. No gastroesophageal reflux wa s appreciated. Radiographs were obtained in oblique and lateral projections, but no contrast is not seen in the esophagus for adequate evaluation of the esophagus on those images. IMPRESSION: Normal appearance of the esophagus without mucosal irregularity or focal narrowing.
== END 2019-06-07 13:54 | disposition home or self-care (01) ==
LOC: RAD 13:53
PROVIDERS: ATTEND Internal Medicine
DX: R13.10 Dysphagia, unspecified (principal)
CPT/HCPCS: 74220

== ENCOUNTER 2019-09-02 14:08 | Outpatient (CLI) | payer MEDICARE ==
--- NOTE | 2019-09-02 14:49 | MMO ---
Bilateral MAMMO Bilat Screen DDI+MARIA D. CLINICAL HISTORY: Patient is 54 years old and is seen for screening. The patient has no family history of breast cancer. The patient has no personal history of cancer. VIEWS: The views performed were: bilateral craniocaudal with tomosynthesis and bilateral mediolateral oblique with tomosynthesis. FILMS COMPARED: The present examination has been compared to prior imaging studies performed at [facility] on 04/07/2009, 03/14/2012, 05/24/2013 and 06/29/2016. This study has been interpreted with the assistance of computer-aided detection. MAMMOGRAM FINDINGS: There are scattered fibroglandular densities. Finding 1: Nodularity is stable. Finding 2: There are stable benign appearing calcifications seen in both breasts. There are no suspicious masses, suspicious calcifications, or new areas of architectural distortion. IMPRESSION: THERE IS NO MAMMOGRAPHIC EVIDENCE OF MALIGNANCY. A ROUTINE FOLLOW-UP MAMMOGRAM IN 1 YEAR IS RECOMMENDED. THE RESULTS OF THIS EXAM WERE SENT TO THE PATIENT. ACR BI-RADS Category 2 - Benign finding MAMMOGRAPHY NOTE: 1. A negative mammogram report should not delay a biopsy if a dominant of clinically suspicious mass is present. 2. Approximately 10% to 15% of breast cancers are not detected by mammography. 3. Adenosis and dense breasts may obscure an underlying neoplasm. Reported by: ISI MERAZ MD Electonically Signed: [id number]
== END 2019-09-02 14:09 | disposition home or self-care (01) ==
LOC: BICMAMMO 14:08
PROVIDERS: ATTEND Family Medicine
DX: Z12.31 Encounter for screening mammogram for malignant neoplasm of breast (principal)
CPT/HCPCS: 77063; 77067

== ENCOUNTER 2019-12-04 23:16 | Emergency (ER) | payer MEDICARE ==
[2019-12-05] MEDS ORDERED: Ketorolac Tromethamine 30 MG/ML VIAL ONE (00:40)
[2019-12-05] MEDS ORDERED: Acetaminophen 500 MG TAB ONE (00:40)
--- NOTE | 2019-12-05 06:42 | CT ---
CT CERVICAL SPINE WITHOUT CONTRAST: Date: 12/05/2019 INDICATION: History of fall with recent neck surgery. COMPARISON: Prior cervical spine radiograph dated 05/01/2019. FINDINGS: The ACDF spanning C4 through C6 is not appreciably changed in position from the comparison radiograph . The instrumentation appears intact. No acute fracture or subluxation is evident. There is straighte nimisha of the normal cervical lordosis. Osseous central canal is preserved. Prevertebral soft tissues a re within normal limits. Lung apices are clear. IMPRESSION: 1. No acute fracture or subluxation is evident. 2. Stable postoperative changes of the cervical spine consistent with an ACDF of C4 through C6. POS: [facility]
--- NOTE | 2019-12-05 08:06 | RAD ---
EXAM: XR Knee Rt 4 View STANDARD PROVIDED CLINICAL HISTORY: Pain FINDINGS: There is no evidence for fracture or other acute osseous abnormality. Alignment appears anatomic. Emmy nt spaces appear preserved. Vascular calcifications are seen. IMPRESSION: No evidence for an acute osseous abnormality. If there is persistent clinical concern, conservative m anagement and follow-up imaging advised.
== END 2019-12-05 01:24 | disposition home or self-care (01) ==
LOC: ERS 23:16
DX: S13.9XXA Sprain of joints and ligaments of unspecified parts of neck, initial encounter (principal); S80.01XA Contusion of right knee, initial encounter; E11.9 Type 2 diabetes mellitus without complications; E78.5 Hyperlipidemia, unspecified; E78.00 Pure hypercholesterolemia, unspecified; I10 Essential (primary) hypertension; F32.9 Major depressive disorder, single episode, unspecified; F17.210 Nicotine dependence, cigarettes, uncomplicated; Z79.899 Other long term (current) drug therapy; W18.30XA Fall on same level, unspecified, initial encounter
CPT/HCPCS: 72125; 96372; J1885

== ENCOUNTER 2020-06-10 15:11 | Outpatient (CLI) | payer MEDICARE | END 2020-06-10 15:12 | disposition home or self-care (01) | LOC: BICMRI 15:11 | PROVIDERS: ATTEND Nurse Practitioner Family | DX: M47.816 Spondylosis without myelopathy or radiculopathy, lumbar region (principal); M54.5 Low back pain; M47.817 Spondylosis without myelopathy or radiculopathy, lumbosacral region; M48.061 Spinal stenosis, lumbar region without neurogenic claudication; M51.27 Other intervertebral disc displacement, lumbosacral region | CPT/HCPCS: 72110; 72148 ==

== ENCOUNTER 2020-11-05 17:18 | Emergency (ER) | payer MEDICARE ==
[2020-11-06 09:11] LABS: SARS-CoV-2 PCR by NAA Not Detected (NotDetected)
== END 2020-11-05 18:14 | disposition home or self-care (01) ==
LOC: ERS 17:18
DX: Z20.822 Contact with and (suspected) exposure to COVID-19 (principal); E11.9 Type 2 diabetes mellitus without complications; E78.5 Hyperlipidemia, unspecified; E78.00 Pure hypercholesterolemia, unspecified; I10 Essential (primary) hypertension; I25.10 Atherosclerotic heart disease of native coronary artery without angina pectoris; M19.90 Unspecified osteoarthritis, unspecified site; F17.210 Nicotine dependence, cigarettes, uncomplicated
CPT/HCPCS: U0003; U0005; 99281

== ENCOUNTER 2021-03-08 02:00 | Emergency (ER) | payer MEDICARE ==
[2021-03-08] MEDS ORDERED: Ketorolac Tromethamine 30 MG/ML VIAL ONE (02:40)
[2021-03-08 10:56] LABS: SARS-CoV-2 PCR by NAA Not Detected (NotDetected)
== END 2021-03-08 03:47 | disposition home or self-care (01) ==
LOC: ERS 02:00
DX: M79.10 Myalgia, unspecified site (principal); I25.10 Atherosclerotic heart disease of native coronary artery without angina pectoris; E11.9 Type 2 diabetes mellitus without complications; E78.5 Hyperlipidemia, unspecified; E78.00 Pure hypercholesterolemia, unspecified; I10 Essential (primary) hypertension; F17.210 Nicotine dependence, cigarettes, uncomplicated; Z20.822 Contact with and (suspected) exposure to COVID-19; Z79.899 Other long term (current) drug therapy
CPT/HCPCS: U0003; U0005; 96372; 99283; J1885

== ENCOUNTER 2021-07-16 07:29 | Outpatient (CLI) | payer MEDICARE | END 2021-07-16 07:30 | disposition home or self-care (01) | LOC: BICULT 07:29 | PROVIDERS: ATTEND Family Medicine | DX: R10.11 Right upper quadrant pain (principal); K76.0 Fatty (change of) liver, not elsewhere classified | CPT/HCPCS: 76705 ==

== ENCOUNTER 2021-07-20 23:02 | Emergency (ER) | payer MEDICARE ==
[2021-07-21 00:05] LABS: #Basophils 0.1 thou/uL (0.0-0.2); #Eosinphils 0.3 thou/uL (0.0-0.7); #Lymphocytes 2.8 thou/uL (1.20-3.40); #Monocytes 0.6 thou/uL (0.11-0.59); #Neutrophils 5.6 thou/uL (1.40-6.50); %Basophils 0.6 % (0.0-1.0); %Eosinophils 2.8 % (0.0-10.0); %Monocytes 6.3 % (0.0-10.0); %Neutrophils 60.3 % (42.0-75.0); Hemoglobin 14.7 g/dL (12.0-16.0); Mean Corpuscular HGB CONC 33.5 g/dL (32.0-36.0); Mean Corpuscular Hemoglobin 30.2 pg (27.0-31.0); Mean Platelet Volume 10.3 fL (7.4-10.4); Platelet Count 142 thou/uL (130-400); RBC Distribution Width 12.7 % (11.5-14.5); Red Blood Cell (RBC) Count 4.87 mill/uL (4.20-5.40); White Blood Cell (WBC) Count 9.2 thou/uL (4.8-10.8)
[2021-07-21 00:26] LABS: ALT (SGPT) 44 U/L (8-55); AST (SGOT) 32 U/L (5-34); Albumin 3.7 g/dL (3.5-5.0); Alkaline Phosphatase 154 U/L (40-110); Anion Gap 15 mmol/L (10-20); BUN (Urea Nitrogen) 9 mg/dL (9.8-20.1); Bilirubin, Total 0.3 mg/dL (0.2-1.2); Calc. Creatinine Clearance 0 mL/min (70-130); Calcium 9.1 mg/dL (7.8-10.44); Carbon Dioxide 25 mmol/L (22-29); Chloride 98 mmol/L (98-107); Globulin 4.1 g/dL (2.4-3.5); Glucose 338 mg/dL (70-105); Lipase 17 U/L (8-78); Potassium 3.8 mmol/L (3.5-5.1); Protein, Total 7.8 g/dL (6.0-8.3); Sodium 134 mmol/L (136-145)
[2021-07-21] MEDS ORDERED: Morphine 4 MG/ML VIAL ONE (00:44)
== END 2021-07-21 00:53 | disposition home or self-care (01) ==
LOC: ERS 23:02
DX: R10.11 Right upper quadrant pain (principal); E11.9 Type 2 diabetes mellitus without complications; E78.5 Hyperlipidemia, unspecified; I10 Essential (primary) hypertension; F17.210 Nicotine dependence, cigarettes, uncomplicated
CPT/HCPCS: 71045; 80053; 83690; 85025; 93005; 96374; J2270

== ENCOUNTER 2021-08-19 10:28 | Outpatient (CLI) | payer MEDICARE | END 2021-08-19 10:29 | disposition home or self-care (01) | LOC: NM 10:28 | PROVIDERS: ATTEND Physician Assistant Medical | DX: K59.09 Other constipation (principal); R74.8 Abnormal levels of other serum enzymes | CPT/HCPCS: 78227; A9537 ==

== ENCOUNTER 2021-11-03 21:00 | Emergency (ER) | payer MEDICARE | END 2021-11-03 23:45 | disposition home or self-care (01) | LOC: ERS 21:00 | DX: B37.2 Candidiasis of skin and nail (principal); E11.9 Type 2 diabetes mellitus without complications; E78.00 Pure hypercholesterolemia, unspecified; F17.210 Nicotine dependence, cigarettes, uncomplicated | CPT/HCPCS: 99283 ==

== ENCOUNTER 2021-12-17 14:18 | Outpatient (CLI) | payer OTHER | END 2021-12-17 14:19 | disposition home or self-care (01) | LOC: BICCT 14:18 | PROVIDERS: ATTEND Nurse Practitioner Family | DX: R51.9 Headache, unspecified (principal) | CPT/HCPCS: 70450 ==

== ENCOUNTER 2022-06-09 14:12 | Outpatient (CLI) | payer OTHER | END 2022-06-09 14:13 | disposition home or self-care (01) | LOC: BICMRI 14:12 | PROVIDERS: ATTEND Nurse Practitioner Family | DX: M51.17 Intervertebral disc disorders with radiculopathy, lumbosacral region (principal) | CPT/HCPCS: 72148 ==

== ENCOUNTER 2022-10-24 13:48 | Outpatient (CLI) | payer OTHER | END 2022-10-24 13:49 | disposition home or self-care (01) | LOC: RAD 13:48 | PROVIDERS: ATTEND Family Medicine | DX: M25.421 Effusion, right elbow (principal) ==

== ENCOUNTER 2023-01-14 22:44 | Emergency (ER) | payer OTHER ==
[2023-01-15] MEDS ORDERED: hydrOXYzine 25 MG TAB ONE (02:10)
[2023-01-15 02:32] LABS: #Basophils 0.1 thou/uL (0.0-0.2); #Eosinphils 0.4 thou/uL (0.0-0.7); #Monocytes 0.8 thou/uL (0.11-0.59); #Neutrophils 5.4 thou/uL (1.40-6.50); %Basophils 0.6 % (0.0-1.0); %Eosinophils 4.2 % (0.0-10.0); %Lymphocytes 32.2 % (21.0-51.0); %Monocytes 7.9 % (0.0-10.0); %Neutrophils 54.4 % (42.0-75.0); Hematocrit 43.1 % (36.0-47.0); Hemoglobin 13.5 g/dL (12.0-16.0); Mean Corpuscular HGB CONC 31.3 g/dL (32.0-36.0); Mean Corpuscular Hemoglobin 28.9 pg (27.0-31.0); Mean Corpuscular Volume 92.3 fl (78.0-98.0); Mean Platelet Volume 11.8 fL (7.4-10.4); Platelet Count 238 10x3/uL (130-400); Red Blood Cell (RBC) Count 4.67 mill/uL (4.20-5.40); White Blood Cell (WBC) Count 9.9 10x3/uL (4.8-10.8)
[2023-01-15 02:57] LABS: ALT (SGPT) 11 U/L (8-55); AST (SGOT) 11 U/L (5-34); Albumin 3.8 g/dL (3.5-5.0); Alkaline Phosphatase 153 U/L (40-110); Anion Gap 14 mmol/L (10-20); BUN (Urea Nitrogen) 16 mg/dL (9.8-20.1); Bilirubin, Total 0.2 mg/dL (0.2-1.2); Calc. Creatinine Clearance 0 mL/min (70-130); Calcium 9.7 mg/dL (7.8-10.44); Carbon Dioxide 27 mmol/L (22-29); Chloride 102 mmol/L (98-107); Estimated GFR 67; Globulin 4.2 g/dL (2.4-3.5); Glucose 214 mg/dL (70-105); Potassium 3.8 mmol/L (3.5-5.1); Sodium 139 mmol/L (136-145)
[2023-01-15] MEDS ORDERED: Iopamidol 370 76% 100 ML VIAL ONE (09:41)
== END 2023-01-15 04:42 | disposition home or self-care (01) ==
LOC: ERS 22:44
DX: L08.9 Local infection of the skin and subcutaneous tissue, unspecified (principal); E11.9 Type 2 diabetes mellitus without complications; I10 Essential (primary) hypertension; F17.210 Nicotine dependence, cigarettes, uncomplicated
CPT/HCPCS: 36415; 72129; 80053; 85025; Q9967

== ENCOUNTER 2023-01-30 12:42 | Outpatient (CLI) | payer OTHER | END 2023-01-30 12:43 | disposition home or self-care (01) | LOC: BICMAMMO 12:42 | PROVIDERS: ATTEND Family Medicine | DX: Z12.31 Encounter for screening mammogram for malignant neoplasm of breast (principal) | CPT/HCPCS: 77063; 77067 ==

== ENCOUNTER 2023-02-15 16:53 | Emergency (ER) | payer OTHER ==
[2023-02-15] MEDS ORDERED: Ketorolac Tromethamine 30 MG (1 mL) VIAL ONE (18:30)
== END 2023-02-15 18:46 | disposition home or self-care (01) ==
LOC: ERS 16:53
DX: R05.9 Cough, unspecified (principal); M79.10 Myalgia, unspecified site; I25.10 Atherosclerotic heart disease of native coronary artery without angina pectoris; E11.9 Type 2 diabetes mellitus without complications; E78.00 Pure hypercholesterolemia, unspecified; I10 Essential (primary) hypertension; F17.210 Nicotine dependence, cigarettes, uncomplicated; Z79.4 Long term (current) use of insulin; Z79.899 Other long term (current) drug therapy
CPT/HCPCS: 71045; 96374; J1885

== ENCOUNTER 2023-02-24 08:58 | Outpatient (CLI) | payer OTHER ==
[2023-02-24] MEDS ORDERED: Iopamidol 370 76% 100 ML VIAL ONE (12:26)
== END 2023-02-24 08:59 | disposition home or self-care (01) ==
LOC: CT 08:58
PROVIDERS: ATTEND Physician Assistant Medical
DX: K59.00 Constipation, unspecified (principal); R10.12 Left upper quadrant pain; R13.10 Dysphagia, unspecified; K76.0 Fatty (change of) liver, not elsewhere classified; R16.0 Hepatomegaly, not elsewhere classified
CPT/HCPCS: 74160

== ENCOUNTER 2023-05-04 12:14 | Emergency (ER) | payer MEDICARE ==
[2023-05-04 13:45] LABS: #Basophils 0.1 thou/uL (0.0-0.2); #Eosinphils 0.1 thou/uL (0.0-0.7); #Monocytes 0.7 thou/uL (0.11-0.59); #Neutrophils 8.1 thou/uL (1.40-6.50); %Basophils 0.7 % (0.0-1.0); %Eosinophils 0.7 % (0.0-10.0); %Lymphocytes 11.9 % (21.0-51.0); %Monocytes 7.1 % (0.0-10.0); %Neutrophils 79.1 % (42.0-75.0); ALT (SGPT) 15 U/L (8-55); AST (SGOT) 12 U/L (5-34); Albumin 3.9 g/dL (3.5-5.0); Alkaline Phosphatase 144 U/L (40-110); Anion Gap 11 mmol/L (10-20); BUN (Urea Nitrogen) 14 mg/dL (9.8-20.1); Bilirubin, Total 0.4 mg/dL (0.2-1.2); Calc. Creatinine Clearance 0 mL/min (70-130); Calcium 10.1 mg/dL (7.8-10.44); Carbon Dioxide 33 mmol/L (22-29); Chloride 100 mmol/L (98-107); Estimated GFR 87; Globulin 4.2 g/dL (2.4-3.5); Glucose 125 mg/dL (70-105); Hematocrit 46.4 % (36.0-47.0); Hemoglobin 14.3 g/dL (12.0-16.0); Mean Corpuscular HGB CONC 30.8 g/dL (32.0-36.0); Mean Corpuscular Hemoglobin 27.9 pg (27.0-31.0); Mean Corpuscular Volume 90.6 fl (78.0-98.0); Mean Platelet Volume 11.8 fL (7.4-10.4); Platelet Count 280 10x3/uL (130-400); Potassium 3.8 mmol/L (3.5-5.1); Protein, Total 8.1 g/dL (6.0-8.3); Red Blood Cell (RBC) Count 5.12 mill/uL (4.20-5.40); Sodium 140 mmol/L (136-145); White Blood Cell (WBC) Count 10.3 10x3/uL (4.8-10.8)
[2023-05-04] MEDS ORDERED: Ondansetron ODT 4 MG TAB ONE (13:49)
[2023-05-04 14:33] LABS: Bilirubin Negative (Negative); Blood, Urine Negative (Negative); CAUTI Indications for Culture Pelvic or flank pain; Glucose, Urine (Dipstick) Greater than 1000 mg/dL (Negative); Ketone, Urine Negative (Negative); Leukocyte Negative Leu/uL (Negative); Nitrite Negative (Negative); Protein, Urine (Dipstick) 20 mg/dL (Neg-Trace); RBC/HPF 0-3 HPF (0-3); Specific Gravity, Urine 1.032 (1.002-1.036); Squamous Epithelial 21-50 HPF (0-3); Urobilinogen Normal mg/dL (Less than 2); pH, Urine 6.5 (5.0-9.0)
[2023-05-04 14:33] LABS: Influenza A by NAA Not Detected (NotDetected); Influenza B by NAA Not Detected (NotDetected); SARS-CoV-2 NAA Rapid Test Not Detected (NotDetected)
[2023-05-04 14:34] LABS: Bacteria/HPF 1+ HPF (None Seen); Clarity Cloudy (Clear); Urine Culture Reflex No No
[2023-05-04 14:59] LABS: Troponin I 0.017 ng/mL (< 0.028)
== END 2023-05-04 15:08 | disposition home or self-care (01) ==
LOC: ERS 12:14
DX: R11.0 Nausea (principal); E11.9 Type 2 diabetes mellitus without complications; E78.00 Pure hypercholesterolemia, unspecified; I10 Essential (primary) hypertension; F17.210 Nicotine dependence, cigarettes, uncomplicated; Z79.899 Other long term (current) drug therapy; Z79.4 Long term (current) use of insulin
CPT/HCPCS: 0240U; 80053; 81001; 83690; 84484; 85025; 93005; 99283; 36415; Q0162

== ENCOUNTER 2023-05-05 08:12 | Emergency (ER) | payer MEDICARE ==
[2023-05-05 09:59] LABS: #Basophils 0.1 thou/uL (0.0-0.2); #Eosinphils 0.1 thou/uL (0.0-0.7); #Monocytes 0.7 thou/uL (0.11-0.59); #Neutrophils 5.9 thou/uL (1.40-6.50); %Basophils 0.7 % (0.0-1.0); %Eosinophils 1.4 % (0.0-10.0); %Lymphocytes 17.4 % (21.0-51.0); %Monocytes 8.3 % (0.0-10.0); %Neutrophils 71.8 % (42.0-75.0); Hemoglobin 13.9 g/dL (12.0-16.0); Mean Corpuscular HGB CONC 30.9 g/dL (32.0-36.0); Mean Corpuscular Hemoglobin 28.3 pg (27.0-31.0); Mean Corpuscular Volume 91.5 fl (78.0-98.0); Mean Platelet Volume 11.7 fL (7.4-10.4); Platelet Count 270 10x3/uL (130-400); RBC Distribution Width 13.9 % (11.5-14.5); Red Blood Cell (RBC) Count 4.92 mill/uL (4.20-5.40)
[2023-05-05 10:11] LABS: Acetaminophen Less than 10 mcg/mL (10.0-30.0); Alcohol Less than 10.0 mg/dL (Less than 10); Salicylate Less than 8.0 mg/dL (15.0-30.0)
[2023-05-05 10:15] LABS: ALT (SGPT) 12 U/L (8-55); AST (SGOT) 11 U/L (5-34); Albumin 3.7 g/dL (3.5-5.0); Alkaline Phosphatase 132 U/L (40-110); Anion Gap 13 mmol/L (10-20); BUN (Urea Nitrogen) 16 mg/dL (9.8-20.1); Bilirubin, Total 0.4 mg/dL (0.2-1.2); Calc. Creatinine Clearance 0 mL/min (70-130); Calcium 9.9 mg/dL (7.8-10.44); Carbon Dioxide 31 mmol/L (22-29); Chloride 101 mmol/L (98-107); Estimated GFR 86; Globulin 3.9 g/dL (2.4-3.5); Glucose 102 mg/dL (70-105); Potassium 3.5 mmol/L (3.5-5.1); Protein, Total 7.6 g/dL (6.0-8.3); Sodium 141 mmol/L (136-145)
== END 2023-05-05 10:50 | disposition home or self-care (01) ==
LOC: ERS 08:12
DX: R11.0 Nausea (principal); E11.9 Type 2 diabetes mellitus without complications; I10 Essential (primary) hypertension; F17.210 Nicotine dependence, cigarettes, uncomplicated
CPT/HCPCS: 36415; 80053; 80307; 84484; 85025; 93005; 96360

== ENCOUNTER 2023-05-05 18:32 | Emergency (ER) | payer MEDICARE ==
[2023-05-05] MEDS ORDERED: Ondansetron ODT 4 MG TAB ONE (20:29)
== END 2023-05-05 21:50 | disposition home or self-care (01) ==
LOC: ERS 18:32
DX: R11.2 Nausea with vomiting, unspecified (principal); F17.210 Nicotine dependence, cigarettes, uncomplicated; E11.9 Type 2 diabetes mellitus without complications; I25.10 Atherosclerotic heart disease of native coronary artery without angina pectoris; I10 Essential (primary) hypertension
CPT/HCPCS: 36415; 36416; 80053; 80307; 84484; 85025; 93005; 96360; 99284; Q0162